=== PATIENT | female | born 1950 | race African-American/Black ===

== ENCOUNTER 2021-12-28 16:47 | Inpatient (IN) | payer MEDICARE, MEDICAID ==
[2021-12-28] VITALS (291 sets, daily range): BP systolic 107–132; BP diastolic 50–67; PULSE 53–68; TEMP 96.9–97.7; O2SAT 85–100
[~2021-12-28] VITALS: Ht 170.2 cm; Wt 83.2 kg
--- NOTE | 2021-12-28 19:15 | NUR ---
PT STATES SHE IS BLIND. PT ANSWERS TO HER SELF AND KNOWS THAT IT IS FRIDAY. PT EXPLAINS SHE HAS BEEN LAYING IN BED SINCE OCTOBER. pt DOES NOT KNOW WHERE SHE IS OR WHY. PT IS CONFUSED BUT COOPERATIVE. PT HAS EARRINGS, NOSERING, AND A TONGUE RING. PTS BELONGINGS INCLUDE A WALLET WITH CARDS, A PHONE BEAN SORTER, AN IPHONE, A FLASHLIGHT, A KOREY PACK, A WIG AND A SWEATER PLACED IN A BAG IN CLOSET IN ROOM. PT IS LAYING IN BED HOOKED UP TO ICU MONITORING. RA. BURNETTE. REPORT GIVEN TO XANDER VALLADARES. CARE RELINQUISED AT THIS TIME
[2021-12-28 19:57] LABS: MEAN CELL VOLUME 102 fl (80.0-100.0); MEAN CORPUSCULAR HGB CONC 37 g/dl (33.0-37.0); MEAN PLATELET VOLUME 13.5 fl (7.4-10.4); PLATELET COUNT 197 K/mm3 (130-400); RED BLOOD COUNT 1.65 M/mm3 (4.10-5.30); REDCELL DISTRIBUTION WIDTH-CV 18.9 % (11.5-14.5)
[2021-12-28 20:00] LABS: MEAN CORPUSCULAR HEMOGLOBIN 38 pg (27-31)
[2021-12-28 20:02] LABS: HEMATOCRIT 16.9 % (37.0-47.0); HEMOGLOBIN 6.2 g/dl (12.5-16.0)
[2021-12-28 20:32] LABS: COLLECTION METHOD CATHETER
[2021-12-28 20:40] LABS: MUCOUS Present (NOT PRESENT); PH 6 (5-8); SQUAMOUS EPITHELIAL None Seen /hpf (0-10); URINE APPEARANCE Cloudy (CLEAR/HAZY); URINE BACTERIA None Seen /hpf (NONE SEEN); URINE BLOOD 3+ (NEGATIVE); URINE COLOR Yellow (YELLOW); URINE GLUCOSE Negative (NEGATIVE); URINE KETONE Negative (NEGATIVE); URINE NITRATE Negative (NEGATIVE); URINE PROTEIN(semi-quant) 2+ (NEGATIVE); URINE RBC >50 /hpf (0-2); URINE UROBILINOGEN Negative (NEGATIVE)
[2021-12-28 20:51] LABS: BAND 15 % (0-10); LYMPHOCYTE 6 % (20.0-51.0); NEUTROPHILS 77 % (42.0-75.2); NUCLEATED RED BLOOD CELL 4 (0-6)
[2021-12-28 20:52] LABS: PLATELET ESTIMATE NORMAL (NORMAL); SCHISTOCYTES 1+; TARGET CELLS 1+
[2021-12-28 20:53] LABS: BURR CELLS 2+
[2021-12-28 20:54] LABS: ANISOCYTOSIS 2+
[2021-12-28 20:54] LABS: ALBUMIN 3.1 gm/dL (3.4-4.8); BILIRUBIN,TOTAL 0.6 mg/dL (0.2-1.2); CALCIUM 8.4 mg/dL (8.4-10.2); CREATININE, serum 3.83 mg/dL (0.57-1.11); MAGNESIUM 2.7 mg/dL (1.6-2.6); TOTAL PROTEIN 7.6 gm/dL (6.2-8.1)
[2021-12-28 20:56] LABS: POTASSIUM 2.6 mmol/L (3.5-4.5)
[2021-12-28 22:01] LABS: TROPONIN-I 0.011 ng/mL (0.00-0.033); TSH w REFLEX 73.36 uIU/mL (0.350-4.940)
[2021-12-29] VITALS (310 sets, daily range): BP systolic 92–134; BP diastolic 33–74; PULSE 33–65; TEMP 92.6–97.4; O2SAT 97–100
--- NOTE | 2021-12-29 01:19 | NUR ---
Vancomycin Initial Dosing Pharmacy Note Ordering provider: Omega Koo MD Indication/duration: Sepsis, source uncertain x 7 days. Relevant comorbidities: HTN, BHUMIKA LABS: SCr = 3.83, WBC = 4.1 Recommendation: Will draw troughs and follow levels. Loading dose: 1.5 grams at OSH @ 14:47 on 12/28/21 Maintenance dose: 1 gram every 48 hours Trough goal: 15-20 ug/mL
--- NOTE | 2021-12-29 02:39 | NUR ---
[facility] TRANSFUSION COMPLETE, VSS, NO S/S OF RXN. AWAITING LAB DRAW OF REPEAT H&H. PT RESTING, HAS BEEN ABLE TO SLEEP SOME. HAS REFUSED TURNS SEVERAL TIMES, HOWEVER BED ROTATION ON AND PT TOLERATING WELL. WILL CONTINUE TO MONITOR.
[2021-12-29 03:20] LABS: MEAN CORPUSCULAR HGB CONC 36 g/dl (33.0-37.0); MEAN PLATELET VOLUME 12.5 fl (7.4-10.4); PLATELET COUNT 138 K/mm3 (130-400); RED BLOOD COUNT 2.97 M/mm3 (4.10-5.30); REDCELL DISTRIBUTION WIDTH-CV 18.4 % (11.5-14.5)
[2021-12-29 03:22] LABS: HEMATOCRIT 27.6 % (37.0-47.0); HEMOGLOBIN 9.8 g/dl (12.5-16.0); MEAN CELL VOLUME 93 fl (80.0-100.0); MEAN CORPUSCULAR HEMOGLOBIN 33 pg (27-31)
[2021-12-29 03:34] LABS: CALCIUM 7.7 mg/dL (8.4-10.2); CREATININE, serum 3.57 mg/dL (0.57-1.11); MAGNESIUM 2.2 mg/dL (1.6-2.6)
[2021-12-29 04:54] LABS: BAND 20 % (0-10); LYMPHOCYTE 8 % (20.0-51.0); NEUTROPHILS 70 % (42.0-75.2); PLATELET ESTIMATE NORMAL (NORMAL)
[2021-12-29 04:55] LABS: ANISOCYTOSIS 1+; TARGET CELLS 1+
--- NOTE | 2021-12-29 06:04 | NUR ---
PT TO TRANSFER UPSTAIRS TO MEDICAL FLOOR, REPORT GIVEN TO RN ASSUMING CARE. WILL TRANSPORT PT VIA BED.
--- NOTE | 2021-12-29 06:25 | NUR ---
PT TRANSFERRED TO ROOM 357 BY BED, MET IN ROOM BY RN AND TECH. MOVED TO MEDICAL BED. PT TOLERATED WELL. ALL BELONGINGS WITH PT.
[2021-12-29 08:13] LABS: MEAN CELL VOLUME 90 fl (80.0-100.0); MEAN CORPUSCULAR HGB CONC 37 g/dl (33.0-37.0); MEAN PLATELET VOLUME 12.7 fl (7.4-10.4); PLATELET COUNT 147 K/mm3 (130-400); RED BLOOD COUNT 2.29 M/mm3 (4.10-5.30)
[2021-12-29 08:21] LABS: HEMATOCRIT 20.6 % (37.0-47.0); HEMOGLOBIN 7.7 g/dl (12.5-16.0); MEAN CORPUSCULAR HEMOGLOBIN 34 pg (27-31)
[2021-12-29 08:29] LABS: CALCIUM 7.6 mg/dL (8.4-10.2); CREATININE, serum 3.42 mg/dL (0.57-1.11); PHOSPHOROUS 2.7 mg/dL (2.3-4.7)
[2021-12-29 08:37] LABS: POTASSIUM 2.8 mmol/L (3.5-4.5)
[2021-12-29 09:00] LABS: BAND 2 % (0-10); EOSINOPHIL 1 % (0-4); LYMPHOCYTE 8 % (20.0-51.0); NEUTROPHILS 87 % (42.0-75.2)
[2021-12-29 09:01] LABS: ANISOCYTOSIS 2+; PLATELET ESTIMATE NORMAL (NORMAL)
[2021-12-29 09:12] LABS: BURR CELLS 1+
--- NOTE | 2021-12-29 11:38 | NUR ---
Patient complains of high levels of plain. No difficulty breathing, shortness of breath, just overall maliase and generalized pain. Patient has pain on swallowing and expresses fear that "she feels she is going to ". Takes pills whole with water. Patient would not remove arms from bed and blanket layers take meds, author had to put pills in patient mouth and move drink to mouth. Patient had to be fed by PCT. Patient refused PT this morning as well.
--- NOTE | 2021-12-29 13:20 | NUR ---
Chaplain stahlyediana and offered support with patient. Patient was in discomfort.
--- NOTE | 2021-12-29 14:12 | NUR ---
Provider notified this morning at 0900 of Potassium level of 2.8 and [place] level of 11. Provider placed orders in JUL. Patient given 1300mg of Sodium Bicarb, 40 meq of Potassium, ordered NOW. Provider notified of noon vitals, patient blood pressure 92/48 and temp 92.6 on recheck. Warm blankets applied, 1000ml Normal saline bolus given, bear hugger ordered, one not currently available, will apply as soon as possible. On assessment with Dr. Paris, patient isatu-area excoriated, very tender. Skin raw, pale and bleeding intermittently. Patient still refusing to roll for authur to view bottom, in report however, was told that patient had a DTI/unstageable ulcer on sacrum. Will document when able to assess.
--- NOTE | 2021-12-29 17:23 | NUR ---
[facility] [employer] [facility] met with patient for intake assessment and discharge planning: Patient presents alert and oriented, lying in bed completely covered in blankets. She is willing to speak and states, "I feel terrible! I'm in pain everywhere!" Upon recognition of social work services, she states "I need somebody to help me at home, to take care of myself a little bit, clean my home a little bit, light cooking, and grocery shopping. Basic things, you know." She states she has previously declined in-home support services because "I was stubborn" expressing fear of having someone move around her personal items so she can't see them, "And forget they are there. I'm blind." She wants to stay in her apartment as long as possible, "I don't want to lose my apartment. It's better than nothing!" She lives at [facility] in [place]. She sees primary care Dr. Dennise Love at [facility], and she prefers to get her medications from [facility]; she has no current medications. She does not have a DPOA, but she wants "Mr. Salgado" to be her emergency contact and she requests assistance to get into her cell phone at bedside to get the phone number for Smita Bowers, her ex-, who resides in [place] and is employed in [employer]. She has no other way to identify his phone number at this time. She states her phone has been "acting up" since she was hospitalized. She is open to recommendations for rehab and/or in-home support care or home health as indicated for a safe discharge. *Discharge plan pending PT/OT recommendations for rehab vs. in-home healthcare and/or [facility]*
[2021-12-29 17:42] LABS: HEMATOCRIT 19.7 % (37.0-47.0); HEMOGLOBIN 7.4 g/dl (12.5-16.0)
[2021-12-29 17:56] LABS: ALBUMIN 2.5 gm/dL (3.4-4.8); BILIRUBIN,TOTAL 0.6 mg/dL (0.2-1.2); CALCIUM 7.3 mg/dL (8.4-10.2); CREATININE, serum 3.03 mg/dL (0.57-1.11); POTASSIUM 3.1 mmol/L (3.5-4.5); TOTAL PROTEIN 6.2 gm/dL (6.2-8.1)
--- NOTE | 2021-12-29 18:38 | NUR ---
Spoke with Dr. Koo, patient to be transfered to ICU as soon as be available. Patient has referral to Dr. Hairston for Central line placement. Dr. Hairston prefers to place in ICU, if delayed he will place on medical or in OR. Patient has recieved 2000mls bolus NS, 1000mls at 100ml/hr. 1G Vanc and 4.5g of Zosyn running at end of shift. D5 1/2 NS running at 100ml/hr LFA. Patient temp rectally at 94.6, blood pressure 98/57. HR 35-60. Patient lethargic, refusing meals, recheck on labs potassium 3.1. Potassium protocol order placed for replacement tonight IV (patient refusing oral intake of any kind) 20meq bag to be run once Central Line placed. Garibay in place, ~350 hematuria with clots out today. No available bear huggers for hypothermia, patient layered in warm blankets that are replaced frequently, rolled inbetween legs, wrapped aroung feet, underarms, and layered on body. Possibly place K-pad inbetween blankets, however recommend hourly temperature monitoring for safety. CASS Fuentes and Screen Examiner Kory to be getting Fluid warmer. Patient bottom with unstagable pressure injury on sacrum, excoriated perineum with bleeding. Cleaned with wash spray, Aqualcell Ag and ABD pad applied for protection, patient hip lifted with warm blanket on and off every two hours. Patient excoriation continues to outer labial region of perineum, with bleeding when legs spread apart for cleaning.
--- NOTE | 2021-12-29 19:19 | NUR ---
THE PATIENT IS LAYING IN BED AT THIS TIME. SHE IS COVERED WITH MANY BLANKETS. STATES SHE IS COLD. FLUIDS RUNNING AT THIS TIME IN THE LEFT AC AND ZOSYN IS RUNNING INTO THE RIGHT HAND. THE PATIENT DOES NOT WANT TO BE UNCOVERED AT THIS TIME. WILL RETURN FOR FULL ASSESSMENT.
--- NOTE | 2021-12-29 21:42 | NUR ---
THE PATIENT IS LAYING IN BED CURRENTLY STABLE CAN BE. NO BARE HUGGER AVAILABLE AT THIS TIME. PT'S RECTAL TEMP IS 95.6 DEGREES. ASSESSMENT OF PATIENT COMPLETE, THERE IS BILATERAL BUTTOCK FOLD EXCORIATION TO THE BUTTOCK FOLDS AND AN UNSTAGEABLE PRESSURE INJURY TO THE COCCYX. WHEN TAKING A RECTAL TEMP IT IS NOTED THAT THERE IS BLEEDING, UNSURE IF IT IS FROM THE EXCORIATION OR DIRECT FROM THE RECTUM. REPORT HAS BEEN CALLED TO ZOË IN THE ICU AND PATIENT IS AWAITING TRANSFER TO THE ICU. NO OTHER CONCERNS AT THIS TIME.
--- NOTE | 2021-12-29 22:50 | NUR ---
PT TAKEN DOWN TO ICU RM 2, TRANSFER OF CARE TO XANDER GARCIA COMPLETED. NO OTHER CONCERNS.
--- NOTE | 2021-12-29 23:19 | NUR ---
ADMIT TO ICU BED 2 AT 2300. PATIENT'S TEMP 97.4, PER PATIENT "ABOUT 96" IS HER BASELINE TEMP AT HOME.
[2021-12-30] VITALS (966 sets, daily range): BP systolic 110–130; BP diastolic 56–72; PULSE 52–64; TEMP 96.1–97.9; O2SAT 95–100
[2021-12-30 06:01] LABS: MEAN CELL VOLUME 90 fl (80.0-100.0); MEAN CORPUSCULAR HGB CONC 36 g/dl (33.0-37.0); MEAN PLATELET VOLUME 12.4 fl (7.4-10.4); PLATELET COUNT 126 K/mm3 (130-400); RED BLOOD COUNT 2.17 M/mm3 (4.10-5.30)
[2021-12-30 06:05] LABS: HEMATOCRIT 19.5 % (37.0-47.0); HEMOGLOBIN 7.1 g/dl (12.5-16.0); MEAN CORPUSCULAR HEMOGLOBIN 33 pg (27-31)
[2021-12-30 06:18] LABS: CREATININE, serum 2.78 mg/dL (0.57-1.11)
[2021-12-30 06:29] LABS: POTASSIUM 2.7 mmol/L (3.5-4.5)
[2021-12-30 09:30] LABS: CALCIUM 7.2 mg/dL (8.4-10.2); CREATININE, serum 2.79 mg/dL (0.57-1.11)
--- NOTE | 2021-12-30 10:12 | NUR ---
REPORT RECEIVED FROM XANDER GARCIA; PATIENT CURRENTLY RESTING IN BED; VITAL SIGNS HAVE REMAINED WITHIN NORMAL LIMITS AND PATIENT HAS IV FLUIDS RUNNING THROUGH HER PERIPHERAL LINE. PATIENT STATES THEY "ARE ALWAYS IN PAIN" AND WAS IN PAIN THIS MORNING.
[2021-12-30 14:33] LABS: ARTERIAL BLD GAS O2 SATURATION 97.4 % (92-100); ARTERIAL BLD GAS TCO2 CT 11.7; ARTERIAL BLOOD GAS BASE EXCESS -13.9 (-2-2); ARTERIAL BLOOD GAS PO2 111.6 mmHg (80-100); ARTERIAL BLOOD GAS pH 7.31 (7.35-7.45)
[2021-12-30 14:36] LABS: ARTERIAL BLOOD GAS PCO2 22.4 mmHg (35-45)
[2021-12-30 18:18] LABS: HEMATOCRIT 19.8 % (37.0-47.0); HEMOGLOBIN 7.3 g/dl (12.5-16.0)
[2021-12-30 18:28] LABS: CALCIUM 7.4 mg/dL (8.4-10.2); CREATININE, serum 2.57 mg/dL (0.57-1.11); POTASSIUM 3.2 mmol/L (3.5-4.5)
--- NOTE | 2021-12-30 20:00 | NUR ---
SHIFT REPORT RECEVIED. PT LEGALLY BLIND BUT REPORTS SHE CAN SEE LIGHT/DARK, MOVEMENT AND COLORS. PT HAS BLE WEAKNESS, ONLY MOVES UPPER EXTREMITIES SLIGHTLY, BL SOW FARM MANAGER WEAKNESS BUT EQUAL. BLE WEAKNESS, WILL ONLY MOVE FEET SLIGHTLY, REFUSES TO MOVE LEGS "I'M AFRAID IT'S GOING TO HURT". REFUSED TURNS IN BED, REFUSED SKIN ASSESSMENT, REFUSED BED BATH. PT DID AGREE TO TURNING ON SCD'S.
[2021-12-31] VITALS (1194 sets, daily range): BP systolic 105–124; BP diastolic 57–83; PULSE 55–67; TEMP 97.5–98; O2SAT 91–100
--- NOTE | 2021-12-31 | NUR ---
PT IS A&O X3 BUT IS REPORTING SEEING "ANGLE OF " "SHE ZIPS IN AND OUT WHEN YOU *THIS NURSE* ARE NOT HERE. SHE MEANS ME HARM BUT ONLY BECAUSE SHE HAS A JOB TO DO." PT THEN REPORTS SEEING "THE CRYPT KEEPER". PT HAD BEEN IN AND OUT OF LIGHT SLEEP. TIFF ODELL NOTIFIED AND AWARE.
[2021-12-31 06:19] LABS: MEAN CELL VOLUME 89 fl (80.0-100.0); MEAN CORPUSCULAR HGB CONC 37 g/dl (33.0-37.0); MEAN PLATELET VOLUME 12.6 fl (7.4-10.4); PLATELET COUNT 122 K/mm3 (130-400); RED BLOOD COUNT 2.26 M/mm3 (4.10-5.30)
[2021-12-31 06:21] LABS: HEMOGLOBIN 7.4 g/dl (12.5-16.0); MEAN CORPUSCULAR HEMOGLOBIN 33 pg (27-31)
[2021-12-31 06:34] LABS: CALCIUM 7.6 mg/dL (8.4-10.2); CREATININE, serum 2.48 mg/dL (0.57-1.11)
--- NOTE | 2021-12-31 06:43 | NUR ---
END OF SHIFT: THROUGH OUT NIGHT PT WAS A&O X3. PT STARTED HAVING VISUAL HALLUCINATIONS. PT SEEING "NURSE OF " "CRYPT KEEPER" AND " PEOPLE THAT I KNOW ARE ANGLES". PT REFUSED BED BATH AND MANUAL TURNS IN BED. BED TURN ASSIST TURNED ON. PT DID ACCEPT MULTIPLE ORAL CARES. PT REFUSED FOOD AND SNACKS, "NOT HURGRY".
[2021-12-31 07:09] LABS: BAND 7 % (0-10); EOSINOPHIL 1 % (0-4); LYMPHOCYTE 18 % (20.0-51.0); NEUTROPHILS 72 % (42.0-75.2); NUCLEATED RED BLOOD CELL 8 (0-6); PLATELET ESTIMATE NORMAL (NORMAL)
[2021-12-31 07:10] LABS: ANISOCYTOSIS 3+; BURR CELLS 2+
--- NOTE | 2021-12-31 07:47 | NUR ---
report given to rayray jimenez
--- NOTE | 2021-12-31 09:30 | NUR ---
PT at beside to work with patient. Initially very hesitant to work with PT and work on range of motion and getting up from bed. Discussed with patient that she needs to be allowing staff to help her and working to be more mobile in bed. This will help with her soreness and prevent further muscular atrophy. Patient allowed PT to work with her and sat on the edge of the bed for a few minutes. Assisted back into bed in a comfortable position. Call light left within reach; will continue to monitor.
--- NOTE | 2021-12-31 14:30 | NUR ---
Systems Management Consultant received information from Oksana TERRELL: Patient okayed emergency contact to her daughter Indira Arthur . She confirms the telephone number for Mr. Salgado, her friend, is . Patient remains alert and oriented at this time, and she is having a PICC line placed; nursing at bedside. Systems Management Consultant remains available as needed. *Discharge plan pending PT/OT evals and medical recommendation*
--- NOTE | 2021-12-31 14:51 | NUR ---
Urine culture results received from [facility]. Results read to Dr. Koo. No new orders at this time.
--- NOTE | 2021-12-31 15:13 | NUR ---
Fourth Grade Teacher met with patient Teresa and Oksana TERRELL: Patient presents alert and oriented, sleepy, and irritable. "I"m trying to get better!" When asking about contact to her daughter, and whether she wants her involved in her care she states, "My daughter hates me!" She states, "I don't know why my daughter hates me!" When attempting to inquire further, she states "I don't want to get into it right now." She does state the last time she talked to her daughter was one week ago, and when RN updates her having spoken to her daughter Indira Sandhya, when she called her friend Mr. Salgado at patient's consent and he gave daughter the phone. Patient states, "You know more than I do!" At this time she starts to get sleepy. Fourth Grade Teacher notes patient consents to daughter's contact for emergency at this time. *Discharge plan pending PT/OT recommendation and medical recommendations. She has requested in-home support services to help with ADLs and IADLs, as possible* help with ADLs and IAas possible*
--- NOTE | 2021-12-31 18:00 | NUR ---
Notifed patient's primary contact, her ex-, [facility] Patient requested this nurse not notify her daughter of the transfer.
--- NOTE | 2021-12-31 19:13 | NUR ---
Urine appears red in color with occasional clots noted. Overnight RN reported that urine had been peach colored during her shift. Hospitalist notified of change in urine color. No new orders at this itme.
--- NOTE | 2021-12-31 20:00 | NUR ---
SHIFT REPORT RECEIVED. PT REFUSED BED BATH, PT REFUSED SCD'S. TOTAL ORAL CARE PROVIDED. EMS ARRIVED TO [facility]. HAND OFF CALLED TO [facility] WALLY GONZALEZ RN.
== END 2021-12-31 20:28 | disposition short-term general hospital (02) | DRG 871 ==
LOC: ICU 16:47 → MEDICAL 12-29 07:10 → ICU 12-29 23:26
PROVIDERS: Internal Medicine; Student in an Organized Health Care Education/Training Program; Surgery; ADMIT Student in an Organized Health Care Education/Training Program
PROC: 30233N1 Transfusion of Nonautologous Red Blood Cells into Peripheral Vein, Percutaneous Approach (ICD-10-PCS; 2021-12-28)
PROC: 02HV33Z Insertion of Infusion Device into Superior Vena Cava, Percutaneous Approach (ICD-10-PCS; principal; 2021-12-31)
DX: A41.9 Sepsis, unspecified organism (principal); E03.5 Myxedema coma; N17.9 Acute kidney failure, unspecified; E87.2 Acidosis; B37.0 Candidal stomatitis; E87.0 Hyperosmolality and hypernatremia; D61.818 Other pancytopenia; E03.9 Hypothyroidism, unspecified; I10 Essential (primary) hypertension; M79.7 Fibromyalgia; R73.9 Hyperglycemia, unspecified; E87.6 Hypokalemia; R31.0 Gross hematuria; S31.502A Unspecified open wound of unspecified external genital organs, female, initial encounter; E86.0 Dehydration; E87.8 Other disorders of electrolyte and fluid balance, not elsewhere classified; D64.9 Anemia, unspecified; S31.829A Unspecified open wound of left buttock, initial encounter; S31.819A Unspecified open wound of right buttock, initial encounter; R13.10 Dysphagia, unspecified; Z88.5 Allergy status to narcotic agent; Z87.19 Personal history of other diseases of the digestive system; Z91.018 Allergy to other foods
CPT/HCPCS: 99233-AI; C1751; C9113; J1815; J2270; J2543; J3010; J3370; J3480; J7030; J7042; J7050; J7070; P9016

== ENCOUNTER 2022-09-09 11:42 | Day surgery (SDC) | payer MEDICARE, MEDICAID ==
[~2022-09-09] VITALS: Ht 170.3 cm; Wt 66.0 kg
[2022-09-09 12:42] LABS: HEMOGLOBIN 10.4 g/dl (12.5-16.0); MEAN CELL VOLUME 91 fl (80.0-100.0); MEAN CORPUSCULAR HEMOGLOBIN 30 pg (27-31); MEAN CORPUSCULAR HGB CONC 33 g/dl (33.0-37.0); MEAN PLATELET VOLUME 11.4 fl (7.4-10.4); PLATELET COUNT 223 K/mm3 (130-400); RED BLOOD COUNT 3.45 M/mm3 (4.10-5.30); REDCELL DISTRIBUTION WIDTH-CV 13.6 % (11.5-14.5)
[2022-09-09 12:44] LABS: HEMATOCRIT 31.5 % (37.0-47.0)
[2022-09-09 12:51] LABS: PROTHROMBIN TIME 11.2 SECONDS (9.7-12.8)
[2022-09-09 12:54] LABS: PARTIAL THROMBOPLASTIN TIME 28.9 SECONDS (26.0-37.0)
[2022-09-09 13:04] LABS: CALCIUM 9.6 mg/dL (8.4-10.2); CREATININE, serum 1.37 mg/dL (0.57-1.11); POTASSIUM 4.5 mmol/L (3.5-4.5)
[2022-09-09 13:08] VITALS: BP 189/69; PULSE 62; TEMP 98.6
[2022-09-09] MEDS ORDERED: COREG 6.256.25 MG/TA PO (13:45)
[2022-09-09] MEDS ORDERED: PLAVIX 75MG TAB75 MG PO (13:46)
[2022-09-09] MEDS ORDERED: SYNTHROID 0.10.15 MG PO (13:46)
[2022-09-09] MEDS ORDERED: OMEGA-31 SGL PO (13:47)
[2022-09-09] MEDS ORDERED: OSCAL 500 TAB500 MG PO (13:47)
[2022-09-09] MEDS ORDERED: VITAMIN C500 MG PO (13:47)
[2022-09-09] MEDS ORDERED: MASON NATURAL2000 IU PO (13:47)
[2022-09-09] MEDS ORDERED: NATURE'S BLEND600 M2 PO (13:50)
--- NOTE | 2022-09-09 14:01 | NUR ---
DEANNA Marsh attempts to consult anesthesia for heart cath procedure due to pt's hightened pain sensations and recent difficulty with procedural sedation in office. Anesethesia states they are unable to assist due to full schedule. Maximo discusses potential for admssion obs overnight and rescheduling procedure to tomorrow, which pt is agreeable with but Reservations Sales Supervisor states this is not possible due to staffing on floor. Maximo back to speak with pt regarding plan.
--- NOTE | 2022-09-09 14:30 | NUR ---
DC instructions reviewed with pt. Procedure was cancelled as pt states she would like to proceed with a different international controller, and because anesthesia is not available today. DEANNA Marsh will assist pt with consult to Dane Ferraro. Pt is aware procedure will be rescheduled at a later date. IV DC'd, site wrapped with coban. Pt calls her transport company for ride home. She is assisted out to Patient Entrance by wheelchair to await their arrival. She denied desire for food prior to departing and leaves with her belongings.
== END 2022-09-09 14:30 | disposition home or self-care (01) ==
LOC: COL.CAR 11:42
PROVIDERS: Internal Medicine Interventional Cardiology
DX: R94.39 Abnormal result of other cardiovascular function study (principal); Z53.9 Procedure and treatment not carried out, unspecified reason; R53.83 Other fatigue; I34.0 Nonrheumatic mitral (valve) insufficiency; I73.9 Peripheral vascular disease, unspecified; Z28.310 Unvaccinated for COVID-19